=== PATIENT | male | born 1945 | race Caucasian/White ===

== ENCOUNTER → 2018-12-05 | Outpatient (CLI) | payer OTHER | END | disposition home or self-care (01) | LOC: OIH 13:03 | PROVIDERS: ATTEND Internal Medicine Cardiovascular Disease | DX: Z13.6 Encounter for screening for cardiovascular disorders (principal) | CPT/HCPCS: 75571 ==

== ENCOUNTER 2019-05-09 07:43 | Day surgery (SDC) | payer MEDICARE ==
[2019-05-09] VITALS (11 sets, daily range): BP systolic 115–151; BP diastolic 56–93
[~2019-05-09] VITALS: Ht 180.3 cm; Wt 119.7 kg
[~2019-05-09 07:43] MED LIST: APIX5TAB PO; DICL100T85 PO; ESOM40CA54 PO; ISOS60TA4 PO; LISI40TA4 PO; METO100T14 PO; NIFE60TA71 PO; NITR0.4T50 SL; Tumeric Curcumin PO
[2019-05-09 08:45] LABS: CREATININE 0.9 mg/dL (0.5-1.5); POTASSIUM 4.6 mmol/L (3.5-5.1)
[2019-05-09 08:49] LABS: INR 1.06 (0.85-1.15); PARTIAL THROMBOPLASTIN TIME 26.2 SEC (26.3-35.5); PROTHROMBIN TIME 11.1 SEC (9.6-11.6)
[2019-05-09 08:53] LABS: BASOPHILS % (AUTO) 0.6 % (0.0-5.0); EOSINOPHILS % (AUTO) 4.3 % (0.0-8.0); HEMATOCRIT 39.7 % (42-54); LYMPHOCYTES % (AUTO) 15.4 % (21.0-51.0); MEAN CORPUSCULAR HEMOGLOBIN 30.1 pg (27.0-33.0); MEAN CORPUSCULAR VOLUME 91.1 fL (79-99); MONOCYTES % (AUTO) 8.7 % (3.0-13.0); NUCLEATED RED BLOOD CELLS 0.1 % (0.0-0.19); PLATELET COUNT (AUTO) 170 K/uL (130-400); RED BLOOD CELL COUNT(AUTO) 4.35 MIL/uL (4.50-6.20)
[2019-05-09] MEDS ORDERED: FURO20TA4 PO (10:06)
[2019-05-09] MEDS ORDERED: LISI10TA7 PO (10:06)
[2019-05-09] MEDS ORDERED: ACET325C6 PO (10:06)
[2019-05-09] MEDS ORDERED: FAMO20TA8 PO (10:06)
[2019-05-09] MEDS ORDERED: ATOR40TA69 PO (10:06)
[2019-05-09] MEDS ORDERED: LEVA15HF3 IH (10:06)
[2019-05-09] MEDS ORDERED: METO-408 PO (10:08)
--- NOTE | 2019-05-09 10:30 | NUR ---
ABNORMAL LABS REPORTED TO ANDREI MITCHELL CRYPTOLOGIC TECHNICIAN WILL MAKE DR. MCKEON AWARE OF LABS. NO NEW ORDERS.
[2019-05-09] MEDS ORDERED: SODIUM CHLORIDE 0.9% 1000ML 1,000 ML IV ONE (10:53)
[2019-05-09] MEDS ORDERED: HEPARIN SODIUM 1000UNIT/ML 10ML VIAL ONE (13:55)
[2019-05-09] MEDS ORDERED: LIDOCAINE HCL 2% 20ML ONE (13:55)
[2019-05-09] MEDS ORDERED: MEPERIDINE-PF 25 MG/ML SYG ONE (14:08)
[2019-05-09] MEDS ORDERED: MIDAZOLAM HCL 1 MG/ML 2ML VIAL ONE ×3 (14:08→14:29)
[2019-05-09] MEDS ORDERED: MEPERIDINE-PF 50 MG/ML SYG ONE (14:27)
--- NOTE | 2019-05-09 16:54 | NUR ---
REPORT GIVEN TO DIANA GREY RN. AT BEDSIDE. PT IS RESTING COMFORTABLY, DRESSING IS DRY AND INTACT, PULSES PRESENT.
--- NOTE | 2019-05-09 16:55 | NUR ---
HANDOFF COMMUNICATION HANDOFF REPORT RECEIVED FROM CHARY MITCHELL AT BEDSIDE USING SBAR. DRESSING TO RIGHT GROIN IS DRY AND INTACT, AREA IS SOFT AND NONTENDER. PATIENT DENIES ANY PAIN. PATIENT AAOX3, RESPIRATIONS UNLABORED, VITAL SIGNS STABLE. PATIENT'S FAMILY MEMBER AT BEDSIDE. SIDERAILS UPX2, BED IN LOWEST POSITION AND CALL BOONE IN REACH.
--- NOTE | 2019-05-09 19:05 | NUR ---
DISCHARGE INSTRUCTIONS PROVIDED TO PATIENT'S SPOUSE/AND SON. FOLLOW UP APPOINTMENTS PROVIDED AND HANDOUTS PROVIDED ON FEMORAL SITE CARE. ALL QUESTIONS/CONCERNS ADDRESSED.
--- NOTE | 2019-05-09 19:10 | NUR ---
PATIENT DISCHARGED FROM FACILITY VIA WHEELCHAIR BY STEPHEN IZQUIERDO. PATIENT ABLE TO TRANSFER HIMSELF INTO PRIVATE VEHICLE UNASSISTED, DRIVEN BY SON.
== END 2019-05-09 19:10 | disposition home or self-care (01) ==
LOC: DAH 07:43
PROVIDERS: ATTEND Internal Medicine Cardiovascular Disease
DX: I48.3 Typical atrial flutter (principal); I25.118 Atherosclerotic heart disease of native coronary artery with other forms of angina pectoris; I10 Essential (primary) hypertension; F41.9 Anxiety disorder, unspecified; Z95.5 Presence of coronary angioplasty implant and graft; Z95.1 Presence of aortocoronary bypass graft; Z79.01 Long term (current) use of anticoagulants; Z79.899 Other long term (current) drug therapy; Z98.890 Other specified postprocedural states; Z88.5 Allergy status to narcotic agent; Z72.89 Other problems related to lifestyle; Z82.49 Family history of ischemic heart disease and other diseases of the circulatory system
CPT/HCPCS: 36415; 80048; 85025; 85610; 85730; 93005; 93613; 93621; 93653; A4215; A4216; A4221; A4222; A4223 ×2; A4606; A4649 ×2; C1730; C1732; C1894 ×2; J1644 ×2; J2175 ×2; J2250 ×3; J3490; J7030; 99156; 99157

== ENCOUNTER → 2019-06-03 | Outpatient (CLI) | payer MEDICARE ==
[~2019-06-03] VITALS: Ht 185.4 cm; Wt 118.4 kg
[~2019-06-03] MED LIST changes: +ACET325C6 PO; +ATOR40TA69 PO; -ESOM40CA54 PO; +FAMO20TA8 PO; +FURO20TA4 PO; -ISOS60TA4 PO; +LEVA15HF3 IH; +LISI10TA7 PO; -LISI40TA4 PO; +METO-408 PO; -METO100T14 PO; -NIFE60TA71 PO; -NITR0.4T50 SL; -Tumeric Curcumin PO
[2019-06-03] MEDS: REGADENOSON 0.4 MG/5 ML PF SYG IVP SCH (13:32)
== END | disposition home or self-care (01) ==
LOC: SHCH 09:06
PROVIDERS: ATTEND Internal Medicine Cardiovascular Disease
DX: I25.89 Other forms of chronic ischemic heart disease (principal); I25.10 Atherosclerotic heart disease of native coronary artery without angina pectoris
CPT/HCPCS: 78452; 93017; 96374; A9500 ×2; J2785

== ENCOUNTER 2019-06-19 05:40 | Observation (INO) | payer MEDICARE ==
[2019-06-17 10:55] LABS: BASOPHILS % (AUTO) 0.4 % (0.0-5.0); EOSINOPHILS % (AUTO) 2.4 % (0.0-8.0); HEMATOCRIT 37.4 % (42-54); LYMPHOCYTES % (AUTO) 13.4 % (21.0-51.0); MEAN CORPUSCULAR HEMOGLOBIN 29.5 pg (27.0-33.0); MEAN CORPUSCULAR HGB CONC 33.2 g/dL (32.0-36.0); MEAN CORPUSCULAR VOLUME 88.9 fL (79-99); MONOCYTES % (AUTO) 11.4 % (3.0-13.0); NEUTROPHILS % (AUTO) 72.4 % (40.0-77.0); PLATELET COUNT (AUTO) 151 K/uL (130-400); WHITE BLOOD COUNT (AUTO) 7.2 K/uL (4.8-10.8)
[2019-06-17 10:57] VITALS: BP 133/73
[2019-06-17 11:01] LABS: POTASSIUM 5.5 mmol/L (3.5-5.1)
[2019-06-17 11:04] LABS: APPEARANCE,URINE Clear (CLEAR); BILIRUBIN,URINE Negative (NEGATIVE); COLOR,URINE Yellow (YELLOW); GLUCOSE, URINE (UA) Negative (NEGATIVE); KETONES,URINE Negative (NEGATIVE); LEUKOCYTE ESTERASE ,URINE Negative (NEGATIVE); NITRATE,URINE Negative (NEGATIVE); OCCULT BLOOD,URINE Negative (NEGATIVE); PROTEIN,URINE POS 1+ mg/dL (NEGATIVE)
[2019-06-17 11:28] LABS: INR 1.09 (0.85-1.15); PARTIAL THROMBOPLASTIN TIME 29.9 SEC (26.3-35.5); PROTHROMBIN TIME 11.4 SEC (9.6-11.6)
[2019-06-17 11:41] LABS: BACTERIA,URINE Rare /HPF (None Seen); SQUAMOUS EPITHELIAL CELL,UR Rare /HPF (0-2); WBC,URINE 0-1 /HPF (0-1)
--- NOTE | 2019-06-18 12:25 | NUR ---
LABS INFORMED Jm BELLO NP OF ABNORMAL CHEST XRAY AND POTASSIUM/SODIUM. ORDERS RECEIVED TO REDRAW POTASSIUM OF DAY OF PROCEDURE.
[2019-06-19] VITALS (10 sets, daily range): BP systolic 116–176; BP diastolic 47–83
[~2019-06-19] VITALS: Ht 180.3 cm; Wt 114.8 kg
[~2019-06-19 05:40] MED LIST changes: -ACET325C6 PO; +ASPI-555 PO; -ATOR40TA69 PO; -DICL100T85 PO; +ESOM40CA PO; -FAMO20TA8 PO; +IPRA4AER IH; -LEVA15HF3 IH; +NITR0.4T50 SL; +SODIUM CHLORIDE 0.9% 500ML 500 ML IV SCH; +[UNRECOGNIZED DRUG - OTHER] PO
[2019-06-19] MEDS ORDERED: SODIUM CHLORIDE 0.9% 1000ML 1,000 ML IV ONE (06:13)
[2019-06-19] MEDS ORDERED: HEPARIN SODIUM 1000UNIT/ML 10ML VIAL ONE (07:07)
[2019-06-19] MEDS ORDERED: IOHEXOL 350 MG/ML 100ML INFUS..BTL IV ONE ×2 (07:07→08:27)
[2019-06-19] MEDS ORDERED: IOHEXOL-350 50ML VIAL IV ONE (07:07)
[2019-06-19] MEDS ORDERED: LIDOCAINE HCL 2% 20ML ONE (07:07)
[2019-06-19] MEDS ORDERED: ASPIRIN 325MG EC TAB 325 MG TABLET.DR PO ONE (08:45)
[2019-06-19] MEDS ORDERED: CLOPIDOGREL BISULFATE 300 MG TAB ONE ×2 (08:45→08:46)
[2019-06-19] MEDS ORDERED: HYDRALAZINE HCL 20 MG/ML VIAL ONE (08:50)
[2019-06-19] MEDS ORDERED: NITROGLYCERIN 4.1 GM SPRAY TL ONE (08:55)
--- NOTE | 2019-06-19 09:45 | NUR ---
ARRIVAL TO FLOOR ROOM 231, PT IS AAOX3 DENIES CP DENIES SOB DENIES NV NO COMPLAINTS, RIGHT GROIN PERCLOSE DRESSING IN PLACE, CLEAN DRY AND INTACT. NO VISIBLE SIGNS OF DISTRESS NOTED, SON IS AT BEDSIDE. CALL LIGHT WITHIN REACH.
[2019-06-19] MEDS ORDERED: NITROGLYCERIN 0.4 MG SL TAB SL PRN (12:15)
[2019-06-19] MEDS: COMBIVENT INH IH SCH ×2 (13:24→17:02)
--- NOTE | 2019-06-19 13:35 | NUR ---
RIGHT GROIN WNL DRESSING IS CLEAN DRY AND INTACT DENIES CP DENIES SOB. NO COMPLAINTS. PATIENT ASSISTED UP TO SEATED POSITION AT BEDSIDE.
--- NOTE | 2019-06-19 14:46 | NUR ---
UP TO CHAIR FAMILY IS AT BEDSIDE
--- NOTE | 2019-06-19 18:00 | NUR ---
STATUS UP IN CHAIR, NO COMPLAINTS. RIGHT GROIN CLEAN DRY AND INTACT.
[2019-06-19] MEDS ORDERED: PNEUMOCOCCAL VACCINE POLYVALENT 0.5 ML/VIAL [PPV] IM SCH (19:45)
[2019-06-19] MEDS ORDERED: FLU VACC QS2019-20 36MOS UP/PF 60 MCG/0.5 ML ML IM SCH (20:00)
[2019-06-19] MEDS: FUROSEMIDE 40 MG TABLET PO SCH (20:03)
--- NOTE | 2019-06-19 22:00 | NUR ---
FLU VACCINE GIVEN ON RIGHT UPPER ARM. PT PENDING PNA VACCINE IN THE AM.
[2019-06-20] VITALS: BP 141/82
[2019-06-20 04:08] VITALS: BP 19/62
--- NOTE | 2019-06-20 04:44 | NUR ---
PT REFUSED TO SHOWER AT THIS TIME. WAS ASKED TWICE DURING THE SHIFT. PT STATES WILL BE HEADING HOME TODAY.
[2019-06-20] MEDS: COMBIVENT INH IH SCH (06:00)
[2019-06-20] MEDS ORDERED: CLOP75TA32 PO (07:38)
[2019-06-20] MEDS ORDERED: ATOR40TA71 PO (07:38)
[2019-06-20] MEDS ORDERED: METOPROLOL TARTRATE 25 MG TAB PO SCH (07:45)
[2019-06-20 07:59] VITALS: BP 136/69
[2019-06-20] MEDS: FUROSEMIDE 40 MG TABLET PO SCH (08:00)
[2019-06-20] MEDS ORDERED: CLOPIDOGREL BISULFATE 75 MG TAB PO SCH (09:00)
[2019-06-20] MEDS ORDERED: LISINOPRIL 10 MG TABLET PO SCH (09:00)
[2019-06-20] MEDS ORDERED: PANTOPRAZOLE SODIUM 40 MG TABLET.DR PO SCH (09:00)
[2019-06-20] MEDS ORDERED: ASPIRIN 81MG TAB.CHEW PO SCH (09:00)
[2019-06-20] MEDS ORDERED: TOPROL 50 MG PO SCH (09:00)
== END 2019-06-20 10:00 | disposition home or self-care (01) ==
LOC: DAH 05:40 → DAHIP 05:41 → 2AH 10:10
PROVIDERS: ADMIT Internal Medicine Cardiovascular Disease; ATTEND Internal Medicine Cardiovascular Disease
DX: I25.9 Chronic ischemic heart disease, unspecified (principal); I25.119 Atherosclerotic heart disease of native coronary artery with unspecified angina pectoris; I48.92 Unspecified atrial flutter; I48.0 Paroxysmal atrial fibrillation; I10 Essential (primary) hypertension; F41.9 Anxiety disorder, unspecified; Z23 Encounter for immunization; Z95.1 Presence of aortocoronary bypass graft; Z79.82 Long term (current) use of aspirin; Z79.01 Long term (current) use of anticoagulants; Z79.899 Other long term (current) drug therapy; Z88.5 Allergy status to narcotic agent
CPT/HCPCS: 36415 ×3; 71045; 80048; 81001; 84132 ×2; 85025; 85347 ×2; 85610; 85730; 93005 ×2; 93455; A4215; A4216; A4221; A4222; A4223 ×3; A4606; A4663; C1725 ×2; C1760 ×2; C1769; C1876 ×2; C1887; C1894 ×2; C9600 ×2; G0008; G0378 ×24; J0360; J1644 ×4; J3490; J7030; Q2035; Q9965 ×2; Q9967 ×3

== ENCOUNTER 2019-07-25 05:37 | Day surgery (SDC) | payer MEDICARE ==
[2019-07-23 13:34] VITALS: BP 168/81
[2019-07-23 13:39] LABS: BASOPHILS % (AUTO) 0.5 % (0.0-5.0); EOSINOPHILS % (AUTO) 3.2 % (0.0-8.0); HEMATOCRIT 37.4 % (42-54); LYMPHOCYTES % (AUTO) 16.3 % (21.0-51.0); MEAN CORPUSCULAR HEMOGLOBIN 27.3 pg (27.0-33.0); MONOCYTES % (AUTO) 8.4 % (3.0-13.0); NEUTROPHILS % (AUTO) 71.2 % (40.0-77.0); PLATELET COUNT (AUTO) 234 K/uL (130-400); RED BLOOD CELL COUNT(AUTO) 4.25 MIL/uL (4.50-6.20); RED CELL DISTRIBUTION WIDTH 14.5 % (11.0-15.5); WHITE BLOOD COUNT (AUTO) 8.4 K/uL (4.8-10.8)
[2019-07-23 13:51] LABS: CREATININE 1.1 mg/dL (0.5-1.5)
[2019-07-23 13:57] LABS: INR 1.13 (0.85-1.15); PARTIAL THROMBOPLASTIN TIME 27.8 SEC (26.3-35.5); PROTHROMBIN TIME 11.8 SEC (9.6-11.6)
[2019-07-25] VITALS (8 sets, daily range): BP systolic 112–152; BP diastolic 49–82
[~2019-07-25] VITALS: Ht 179.1 cm; Wt 118.5 kg
[~2019-07-25 05:37] MED LIST changes: +ATOR40TA71 PO; +CLOP75TA32 PO; -FURO20TA4 PO; -IPRA4AER IH; -NITR0.4T50 SL
[2019-07-25] MEDS ORDERED: SODIUM CHLORIDE 0.9% 1000ML 1,000 ML IV ONE (06:06)
[2019-07-25] MEDS ORDERED: METO-391 PO (06:22)
--- NOTE | 2019-07-25 06:40 | NUR ---
RIGHT EYE : DROOPY EYE "HAVE EYE GLASS" TO RIGHT Addendum: 07/25/19 at 0641 by TIMBO JONES RN Amended: Links added.
[2019-07-25] MEDS ORDERED: IPRA4AER IH (06:43)
--- NOTE | 2019-07-25 07:35 | NUR ---
METER RECORD CLERK PT TAKEN TO METER RECORD CLERK FOR SCHEDULED PROCEDURE.
[2019-07-25] MEDS ORDERED: MIDAZOLAM HCL 1 MG/ML 2ML VIAL ONE ×4 (07:42→08:57)
[2019-07-25] MEDS ORDERED: HEPARIN SODIUM 1000UNIT/ML 10ML VIAL ONE (07:42)
[2019-07-25] MEDS ORDERED: MEPERIDINE-PF 25 MG/ML SYG ONE ×4 (07:42→08:57)
[2019-07-25] MEDS ORDERED: LIDOCAINE HCL 2% 20ML ONE (07:43)
[2019-07-25] MEDS ORDERED: AMIODARONE HCL 50 MG/ML 3 ML VIAL ONE (08:40)
[2019-07-25] MEDS ORDERED: DRON400T2 PO (09:54)
[2019-07-25] MEDS ORDERED: DRONEDARONE HYDROCHLORIDE 400 MG TABLET PO SCH (10:00)
--- NOTE | 2019-07-25 10:30 | NUR ---
post received pt back [facility] , s/p aflutter ablation right groin dressing dry and intact, small dry blood spot noted. no bleeding or hematoma to site. plan of care discuss with patient / son, pt instructed to keep bedrest for [address] Harper spoke to patient son about ablation outcome
--- NOTE | 2019-07-25 10:40 | NUR ---
emmanuel Multaq 400 mg po bid called in to patient's [facility] of his choice [facility] and [facility] in medication as per dr. cabello's orders .
--- NOTE | 2019-07-25 12:53 | NUR ---
report report given to nelli faith to resume care of patient
--- NOTE | 2019-07-25 13:45 | NUR ---
DISCHARGE ORAL AND WRITTEN DISCHARGE INSTRUCTIONS GIVEN BY STEPHEN IZQUIERDO TO PT AND FRIEND. NO QUESTIONS AT THIS TIME.
== END 2019-07-25 13:50 | disposition home or self-care (01) ==
LOC: DAH 05:37
PROVIDERS: ATTEND Internal Medicine Cardiovascular Disease
DX: I48.3 Typical atrial flutter (principal); I10 Essential (primary) hypertension; F41.9 Anxiety disorder, unspecified; I45.10 Unspecified right bundle-branch block; I25.10 Atherosclerotic heart disease of native coronary artery without angina pectoris; Z88.5 Allergy status to narcotic agent; Z79.82 Long term (current) use of aspirin; Z79.01 Long term (current) use of anticoagulants; Z79.899 Other long term (current) drug therapy; Z95.1 Presence of aortocoronary bypass graft
CPT/HCPCS: 36415; 80048; 85025; 85610; 85730; 93005; 93613; 93621; 93653; A4215; A4216; A4221; A4222; A4223 ×3; A4606; A4649 ×2; A4663; C1730; C1732; C1894 ×2; J0282; J1644 ×2; J2175 ×4; J2250 ×4; J3490; J7030; 99156; 99157